=== PATIENT | female | born 1950 | race Caucasian/White ===

== ENCOUNTER 2017-09-08 08:35 | Outpatient (CLI) ==
--- NOTE | 2017-09-08 09:56 | US ---
EXAM: Abdominal ultrasound limited HISTORY: Right upper quadrant pain COMPARISON: Ultrasound 04/09/2009 TECHNIQUE: Sonographic and limited Doppler evaluation of the right upper quadrant was performed. FINDINGS: The liver is normal in echogenicity and measures 14.7 cm. The portal vein is patent. The gallbladder demonstrates no stones or sludge. The gallbladder wall measures 0.2 cm in thickness. Co mmon bile duct is unremarkable and measures 0.4 cm in diameter. The pancreas is unremarkable in appe arance. The right kidney measures 8.8 x 4.0 x 4.7 cm with cortical thickness of 1.5 centimeters. The re is a right anechoic renal cyst measuring 3.5 x 3.1 x 3.2 cm. IMPRESSION: 1. No sonographic abnormality to account for patient's symptoms. 2. Anechoic right renal cyst is present.
== END 2017-09-08 08:36 | disposition home or self-care (01) ==
LOC: RAD 08:35
PROVIDERS: ATTEND Family Medicine
DX: R10.10 Upper abdominal pain, unspecified (principal)

== ENCOUNTER 2017-09-11 07:43 | Outpatient (CLI) ==
--- NOTE | 2017-09-11 10:45 | NM ---
EXAM: Hepatobiliary imaging HISTORY: Abdominal pain COMPARISON: Limited abdominal ultrasound on 09/08/2017 showed no abnormality. TECHNIQUE: Patient was injected 5.2 mCi of technetium 99m Choletec intravenously. Multiple anterior scintigraphic images of the right upper quadrant region of the abdomen were obtained up to 1 hour int erval. The patient was infused 1.6 mcg of Kinevac intravenously and gallbladder ejection fraction wa s calculated. FINDINGS: There is normal visualization of liver, gallbladder, bile duct and small bowel loops. Gall bladder ejection fraction is 24% which is abnormal. 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
== END 2017-09-11 07:44 | disposition home or self-care (01) ==
LOC: RAD 07:43
PROVIDERS: ATTEND Family Medicine
DX: R10.10 Upper abdominal pain, unspecified (principal)

== ENCOUNTER 2018-06-24 13:36 | Outpatient (CLI) | END 2018-06-24 13:37 | disposition home or self-care (01) | LOC: CAR 13:36 | PROVIDERS: ATTEND Family Medicine | DX: G47.33 Obstructive sleep apnea (adult) (pediatric) (principal) | CPT/HCPCS: 95810 ==

== ENCOUNTER 2018-08-31 10:59 | Outpatient (CLI) | END 2018-08-31 11:00 | disposition home or self-care (01) | LOC: CAR 10:59 | PROVIDERS: ATTEND Psychiatry & Neurology Sleep Medicine | DX: G47.33 Obstructive sleep apnea (adult) (pediatric) (principal) ==